=== PATIENT | female | born 1975 | race African-American/Black ===

== ENCOUNTER 2019-05-11 03:27 | Inpatient (IN) ==
[2019-05-11] MEDS ORDERED: ONDANSETRON 4 MG/2 ML VIAL IV STA (04:05)
[2019-05-11] MEDS ORDERED: methylPREDNISolone SOD SUC 125 MG/2 ML VIAL IV STA (04:05)
[2019-05-11] MEDS ORDERED: FUROSEMIDE 100 MG/10 ML VIAL IV STA (04:05)
[2019-05-11] MEDS ORDERED: MORPHINE 4 MG/1 ML VIAL IV STA (04:05)
[2019-05-11] MEDS ORDERED: ASPIRIN 325 MG TABLET PO STA (04:05)
[2019-05-11] MEDS ORDERED: ALBUTEROL NEB SOLN 5 MG/ML 20 ML/BOTTLE RESP TX SCH (04:30)
[2019-05-11 04:43] LABS: Basophils % 0.5 % (0.0-0.8); Eosinophils # 0.7 10*3/uL (0.0-0.87); Eosinophils % 8.5 % (0.00-10.9); Hemoglobin 14.8 GM/DL (12.0-16.0); Immature Granulocytes % 0.5 %; Immature Granulocytes Absolute 0.04 #; Lymphocytes # 2.3 10*3/uL (1.4-4.0); Lymphocytes % 26.7 % (21.3-54.2); Mean Corpuscular HGB Conc 32.9 GM/DL (32-36); Mean Corpuscular Volume 90.9 FL (87-102); Mean Platelet Volume 10.4 FL (9.6-12.0); Monocytes % 7.2 % (1.7-12.7); Neutrophils % 56.6 % (38.7-73.9); Platelet Count 237 T/CUMM (130-400); Red Blood Count 4.95 MC/CUMM (3.8-5.5); Red Cell Distribution Width 13.1 % (9.3-17.3); White Blood Count 8.8 T/CUMM (4-12)
[2019-05-11 04:45] LABS: ABG Base Excess 2.9 MMOL/L (-2.5-2.5); ABG HCO3 26.9 MMOL/L (20-26); ABG Oxygen Saturation 94.6 % (95-100); ABG PCO2 57.4 MM HG (35-48); ABG PH 7.337 (7.35-7.45); ABG TCO2 26.3 MMOL/L (23-27); Allen Test Positive
[2019-05-11] MEDS ORDERED: hydrALAZINE 20 MG/1 ML VIAL IV STA (04:58)
[2019-05-11 05:08] LABS: Alanine Aminotransferase 22 U/L (13-56); Albumin 3.3 G/DL (3.4-5.0); Alkaline Phosphatase 78 U/L (45-117); Aspartate Amino Transferase 20 U/L (0-37); Bilirubin,Total < 0.39 MG/DL (0.2-1.0); Blood Urea Nitrogen 8 MG/DL (7-18); CKMB % 2.3 %; Estimated Glom Filtration Rate 156 ML/MIN; Glucose 120 MG/DL (74-106); Osmolality,Calculated 279.3 MOS/KG (273-304); Total Protein 7.3 G/DL (6.4-8.3)
[2019-05-11 05:13] LABS: Troponin I 0.114 NG/ML (0.00-0.045)
[2019-05-11] MEDS ORDERED: MAGNESIUM SULF RIDER 2 GM in PREMIX 1 EACH IV STA (05:16)
[2019-05-11] MEDS ORDERED: POTASSIUM CHLORIDE 20 MEQ TABLET PO STA (05:17)
[2019-05-11] MEDS ORDERED: ONDANSETRON 4 MG/2 ML VIAL IV PRN (06:12)
[2019-05-11 06:41] LABS: Apearance,Urine CLEAR (Clear); Bacteria,Urine Occasional /HPF (Few); Bilirubin,Urine Negative (Negative); Blood, Urine Negative (Negative); Glucose,Urine (UA) Negative (Negative); Ketones,Urine Negative (Negative); Mucus,Urine Occasional /LPF (Occasional); Nitrite,Urine Negative (Negative); Protein,Urine Negative; RBC,Urine 1 /HPF (0-4); Squamous Epithelial Cell,Urine Occasional /HPF (0-10); Urine Color Straw (Yellow); Urine Specific Gravity 1.009 (1.001-1.035); Urine Urobilinogen < 2.0 EU/DL (0.2-1.0); WBC,Urine 2 /HPF (0-6)
[2019-05-11 06:48] LABS: Barbiturates Screen,Urine Negative (Negative); Benzodiazepines Screen,Urine Negative (Negative); Cannabinoid Screen,Urine Negative (Negative); Opiate Screen,Urine Positive (Negative); Phencyclidine Screen,Urine Negative (Negative)
[2019-05-11] MEDS: ALBUTEROL/IPRATROPIUM 3 ML NEB RESP TX SCH ×4 (07:40→20:38)
[2019-05-11] MEDS: AZITHROMYCIN 250 MG TABLET PO SCH (09:32)
[2019-05-11] MEDS: PANTOPRAZOLE 40 MG TABLET PO SCH (09:32)
[2019-05-11] MEDS: methylPREDNISolone SOD SUC 40 MG/1 ML VIAL IV SCH ×3 (09:32→22:46)
[2019-05-11] MEDS: ENOXAPARIN 40 MG/0.4 ML SYRINGE SUBCUT SCH (09:32)
[2019-05-11] MEDS: amLODIPine 10 MG TABLET PO SCH (09:32)
[2019-05-11] MEDS: SODIUM CHLORIDE 0.9% 1,000 ML IV SCH ×2 (09:33→19:05)
[2019-05-11] MEDS: FLUTICASONE/SALMETEROL 250-50 DISKUS 14 DOSE INH SCH ×2 (09:34→22:46)
[2019-05-11] MEDS ORDERED: INFLUENZA VIRUS VACCINE 0.5 ML SYRINGE IM ONE (09:45)
[2019-05-11] MEDS ORDERED: PNEUMOCOCCAL VACCINE (13 VALENT) 0.5 ML SYRINGE IM ONE (09:45)
[2019-05-11] MEDS ORDERED: hydrALAZINE 20 MG/1 ML VIAL IV PRN (12:36)
[2019-05-11] MEDS ORDERED: cloNIDine 0.1 MG TABLET PO ONE (17:31)
[2019-05-12] MEDS: ALBUTEROL/IPRATROPIUM 3 ML NEB RESP TX SCH ×3 (00:09→07:45)
[2019-05-12] MEDS: SODIUM CHLORIDE 0.9% 1,000 ML IV SCH ×2 (03:36→15:01)
[2019-05-12 05:22] LABS: Basophils % 0.2 % (0.0-0.8); Hematocrit 41.7 VOL% (35.7-47.0); Hemoglobin 13.7 GM/DL (12.0-16.0); Immature Granulocytes % 2.7 %; Immature Granulocytes Absolute 0.53 #; Lymphocytes # 0.9 10*3/uL (1.4-4.0); Lymphocytes % 4.8 % (21.3-54.2); Mean Corpuscular HGB Conc 32.9 GM/DL (32-36); Mean Corpuscular Volume 92.3 FL (87-102); Mean Platelet Volume 11.1 FL (9.6-12.0); Neutrophils % 89.3 % (38.7-73.9); Platelet Count 240 T/CUMM (130-400); Red Blood Count 4.52 MC/CUMM (3.8-5.5); Red Cell Distribution Width 13.2 % (9.3-17.3); White Blood Count 19.6 T/CUMM (4-12)
[2019-05-12 05:44] LABS: Band Neutrophils 3 % (0-10); Hypochromasia Slight; Lymphocytes 6 % (20-55); Microcytosis Slight; Platelet Estimate Normal; Polychromasia Slight; Segmented Neutrophils 88 % (50-85); Total Cells Counted 100
[2019-05-12] MEDS: methylPREDNISolone SOD SUC 40 MG/1 ML VIAL IV SCH (05:49)
[2019-05-12] MEDS: ENOXAPARIN 40 MG/0.4 ML SYRINGE SUBCUT SCH (05:50)
[2019-05-12 05:52] LABS: Calcium 8.5 MG/DL (8.5-10.1); Osmolality,Calculated 282.5 MOS/KG (273-304)
[2019-05-12] MEDS ORDERED: ACETAMINOPHEN 325 MG TABLET PO PRN (09:03)
[2019-05-12] MEDS: amLODIPine 10 MG TABLET PO SCH (09:28)
[2019-05-12] MEDS: PANTOPRAZOLE 40 MG TABLET PO SCH (09:28)
[2019-05-12] MEDS: AZITHROMYCIN 250 MG TABLET PO SCH (09:28)
[2019-05-12] MEDS: FLUTICASONE/SALMETEROL 250-50 DISKUS 14 DOSE INH SCH (09:52)
[2019-05-12 11:57] VITALS: BP 151/98
== END 2019-05-12 14:34 | disposition home or self-care (01) | DRG 192 ==
LOC: N.ED 03:27 → N.EDINP 06:12 → N.2E 08:47
PROVIDERS: ADMIT Hospitalist; ATTEND Hospitalist